=== PATIENT | male | born 1990 | race Hispanic/Latino ===

== ENCOUNTER 2016-10-19 20:10 | Emergency (ER) | payer OTHER ==
[~2016-10-19] VITALS: Ht 170.2 cm; Wt 79.1 kg
[2016-10-19 20:26] VITALS: BP 156/120; PULSE 71; RESP 18; O2SAT 94
[2016-10-19 22:34] VITALS: BP 139/90; PULSE 84; RESP 18; O2SAT 97
--- NOTE | 2016-10-19 22:57 | ED.REPORT ---
HPI-Neck Pain Free Text HPI Notes Oct 19, 2016 ED Provider: Bertin Tobin MD Patient is a 26 year old male who presents to the ED with neck pain after lifting his recently injured right shoulder earlier today. Patient states that he lifted up his arm in the shower and then developed severe neck pain. He reports radiation of his pain down his neck to his shoulder and shoulder blade, with limited range of motion. He reports numbness and tinging of his right arm. The patient injured his right shoulder at work on September 30 after several bookcases landed on his shoulder. The patient is to be seen by Dr. Verma, who has an appointment with in 2 days to possibly order an MRI. Patient was seen after this injury on 10/05, which no acute problem on x-ray. He was also seen at Urgent Care 2 days ago and was given a sling. He is not on any chronic narcotic pain medications and he has been taking Naproxen at home. He filed an L&I claim at work after the injury occurred. Nursing Notes Stated Complaint: FAINTING WITH RIGHT ARM PAIN Chief Complaint: Extremity Trauma Nursing Notes Reviewed: Yes Allergies: Coded Allergies: No Known Allergies (Verified Allergy, Unknown, 07/10/15) Scheduled Dexamethasone (Dexamethasone) 4 Mg Tablet 4 MG PO BID Scheduled PRN Hydrocodone-Acetaminophen 5-325 mg (Hydrocodone-Acetaminophen 5-325 mg) 1 Each Tablet 2 TABLET PO Q4H PRN PRN For Pain General Time Seen by Provider: 23:08 Chief Complaint Neck pain, Other Hx Obtained From: Patient Arrived By: Walk-in Sudden in Onset?: Yes Onset Occurred: 1 - 4 hours ago (original injury on Sep 30) Symptom Duration: Since onset Severity: Current: Severe Severity: Maximum: Severe Recent Healthcare: Recent doctor visit Similar Sx Previous: Yes Past Medical History Past Medical History Denies any major medical problems Past Surgical History Denies Smoking History Current Every Day Smoker Social History Alcohol Use: Denies alcohol use Other Social History: Good social support, , Lives with children, Local resident Occupation Works at [employer] Ambulatory Status Independent Review of Systems Musculoskeletal: Reports: Extremity pain, Neck pain Neurologic: Reports: Numbness, Weakness Complete sys rev & neg: except as marked. Physical Exam Initial Vital Signs Vital Signs (First) Date Time Temp Pulse Resp B/P Pulse Ox O2 Delivery O2 Flow Rate FiO2 10/19/16 20:26 36.7 71 18 156/120 94 Room Air Initial VS: Reviewed Head / Eyes: Atraumatic, Normocephalic, PERRL ENT: Conjunctiva normal, No scleral icterus Skin: Warm, Dry, No cyanosis Psychiatric: Mood/affect normal, Behavior normal, Normal thought content General/Constitutional: Awake, Alert Appearance / Presentation: Positive: In pain Neck: Supple Neck / Muscle Tenderness: Positive: Trapezius R... diffuse tenderness and rigidity, unable to fully examine the patient due to pain Neurologic: Oriented X3, Speech NL Respiratory / Chest: No respiratory distress, No stridor Cardiovascular: Heart rate NL, Cap refill not delayed Upper Extremity / MS: Neurologic intact, Vascular intact right arm is in sling. unable to fully examine the patient due to his pain. Lower Extremity / Pelvis / MS: Neurologic intact, Vascular intact Re-Eval/Medical Decision Med Decision/Clinical Course 26-year-old with a work-related neck injury presents with pain radiating from his neck to his shoulder, neck rigidity, after trivial elevation of his arm. He is a fairly clear-cut cervical radiculopathy. He is provided with a soft collar, brief Decadron course, hydrocodone, and ongoing Naprosyn. Discharged in stable condition. Source of Hx: Old records Re-Evaluation/Progress : Time of Eval: 23:18 Patient Status: Condition improved Re-Evaluation/Progress Note: Patient understands and agrees with the plan to be discharged home. Discharge instructions and follow-up discussed. All questions were addressed. Return to the ED warnings given. Counseled Regarding: Diagnosis, Need for follow-up, When/why to return to ED Discharge & Departure Shift Change Sign-Out Response to Therapy: Improved Primary Impression: Cervical radiculopathy Disposition: Home Discharge Condition All VS Reviewed: Yes Condition: Stable Patient Instructions: Cervical Radiculopathy (ED) Additional Instructions: Follow-up with Dr. Verma as planned. Continue Naprosyn twice daily. Vicodin two tablets four times daily if needed. Decadron one tablet twice daily for three days. Rest, heat. Return to work when cleared by Dr. Verma Referrals: Stephanie Verma MD (PCP) ED Scribe Statement Portions of this note were transcribed by Enedina Muñiz. I, Dr. Tobin personally performed the history, physical exam and medical decision-making; I reviewed and confirmed the accuracy of the information in the transcribed note. Signed by: Jackie Rand, 10/19/2016 [id number] copies to: Stephanie Verma MD, Christopher W MD Oct 19, 2016 22:57 Enedina Muñiz Oct 19, 2016 23:18
[2016-10-19] MEDS ORDERED: Ketorolac 30 mg/mL 2 mL Inj IM ONE (23:00)
[2016-10-19] MEDS ORDERED: HYDROcodone-APAP 5-325 mg Tablet PO ONE (23:00)
[2016-10-19] MEDS ORDERED: Dexamethasone 20 mg/2 mL Oral Solution PO ONE (23:00)
[2016-10-19] MEDS ORDERED: _HYDROcodone/APAP 5-325 mg Tablet PO PRN (23:15)
[2016-10-19] MEDS ORDERED: HYDR-4003 PO (23:16)
[2016-10-19] MEDS ORDERED: DXM4T PO (23:16)
[2016-10-20] VITALS: BP 112/67; PULSE 68; RESP 16; O2SAT 98
== END 2016-10-20 00:01 | disposition home or self-care (01) ==
LOC: SED 20:10
DX: M54.12 Radiculopathy, cervical region (principal); X50.1XXA Overexertion from prolonged static or awkward postures, initial encounter; Y92.002 Bathroom of unspecified non-institutional (private) residence as the place of occurrence of the external cause; Y93.E1 Activity, personal bathing and showering; Y99.8 Other external cause status; S49.91XD Unspecified injury of right shoulder and upper arm, subsequent encounter; W20.8XXD Other cause of strike by thrown, projected or falling object, subsequent encounter; Y92.86 Slaughter house as the place of occurrence of the external cause; Y93.89 Activity, other specified; Y99.0 Civilian activity done for income or pay; F17.200 Nicotine dependence, unspecified, uncomplicated
CPT/HCPCS: 96372; 99283; J1885